=== PATIENT | female | born 1985 | race Caucasian/White ===

== ENCOUNTER 2017-07-24 09:10 | Inpatient (IN) | payer OTHER ==
[~2017-07-24] VITALS: Ht 165.1 cm; Wt 88.5 kg
[~2017-07-24 09:10] MED LIST: IBUP-974 PO
[2017-07-24] MEDS ORDERED: OXYTOCIN 20 UNITS/LR PREMIX 1,000 ML IV SCH (09:56)
[2017-07-24] MEDS ORDERED: LACTATED RINGERS 1,000 ML IV SCH (09:56)
[2017-07-24] MEDS ORDERED: OXYTOCIN 10 UNITS/ML VIAL IM SCH (10:00)
[2017-07-24] MEDS ORDERED: CARBOPROST 250 MCG/ML AMP IM PRN (10:00)
[2017-07-24] MEDS ORDERED: METHYLERGONOVINE 0.2 MG/ML AMP IM SCH (10:00)
[2017-07-24] MEDS ORDERED: IBUPROFEN 800 MG TAB PO PRN ×2 (10:00→15:10)
[2017-07-24] MEDS ORDERED: NALBUPHINE 10 MG/ML AMP IVP PRN (10:00)
[2017-07-24] MEDS ORDERED: PROMETHAZINE 25 MG/ML VIAL IVP PRN (10:00)
[2017-07-24] MEDS ORDERED: NALBUPHINE HYDROCHLORIDE 10 MG/ML VIAL ONE (10:28)
[2017-07-24 11:16] LABS: BASOPHILS # (AUTO) 0.5 K/uL (0.00-0.22); BASOPHILS % (AUTO) 3.2 % (0.0-2.0); EOSINOPHILS # (AUTO) 0.3 K/uL (0-0.4); EOSINOPHILS % (AUTO) 1.9 % (0.0-4.0); HEMATOCRIT 44.8 % (36-48); HEMOGLOBIN 14.5 g/dL (12.0-16.0); LYMPHOCYTES % (AUTO) 7.2 % (20.5-51.1); MEAN CORPUSCULAR HEMOGLOBIN 31 pg (27-31); MEAN CORPUSCULAR HGB CONC 32 g/dL (33-37); MEAN CORPUSCULAR VOLUME 96 fL (80-94); MONOCYTES # (AUTO) 0.5 K/uL (0.8-1.0); MONOCYTES % (AUTO) 3.7 % (1.7-9.3); PLATELET COUNT (AUTO) 104 K/uL (140-450); RED BLOOD CELL COUNT(AUTO) 4.67 MIL/uL (4.20-5.40); RED CELL DISTRIBUTION WIDTH 13.4 % (11.6-13.7); WHITE BLOOD COUNT (AUTO) 14.3 K/uL (4.8-10.8)
[2017-07-24 11:17] VITALS: BP 121/86
[2017-07-24 11:28] LABS: APPEARANCE,URINE CLEAR (CLEAR); BILIRUBIN,URINE NEGATIVE (NEGATIVE); BLOOD, URINE NEGATIVE (NEGATIVE); COLOR,URINE YELLOW (YELLOW); LEUKOCYTE ESTERASE ,URINE NEGATIVE (NEGATIVE); NITRITE, URINE NEGATIVE (NEGATIVE); PH,URINE 5.5 (5.0-9.0); UGLUCOSE NEGATIVE (NEGATIVE)
[2017-07-24 11:32] LABS: ALBUMIN 2.7 g/dL (3.4-5.0); ANION GAP 19.3 (8-16); CARBON DIOXIDE 18.2 mmol/L (21-32); CREATININE 0.8 mg/dL (0.6-1.3); POTASSIUM 3.5 mmol/L (3.5-5.1); TOTAL BILIRUBIN 0.4 mg/dL (0.0-1.0)
[2017-07-24] MEDS ORDERED: OXYTOCIN 20 UNITS/LR PREMIX 1,000 ML IV ONE (11:57)
[2017-07-24] MEDS ORDERED: LIDOCAINE 1% 50 ML ONE ×2 (11:57→13:52)
[2017-07-24] MEDS ORDERED: OXYTOCIN 10 UNITS/ML VIAL ONE (11:57)
[2017-07-24] MEDS ORDERED: NALOXONE 0.4 MG/ML VIAL ONE (11:59)
[2017-07-24] MEDS ORDERED: LIDOCAINE 1% 500 MG/50 ML VIAL INJ SCH ×2 (12:20→15:10)
[2017-07-24] MEDS ORDERED: SODIUM PHOSPHATE 118 ML ENEM RC PRN (15:10)
[2017-07-24] MEDS ORDERED: TEMAZEPAM 15 MG CAP PO PRN (15:10)
[2017-07-24] MEDS ORDERED: BENZOCAINE/MENTHOL 20%-0.5% 60 GM CAN TP PRN (15:10)
[2017-07-24] MEDS ORDERED: HYDROcodone/APAP 5/325 MG 1 TAB TAB PO PRN (15:10)
[2017-07-24] MEDS ORDERED: oxyCODONE/APAP 5/325 MG 1 TAB TAB PO PRN (15:10)
[2017-07-24] MEDS ORDERED: MEASLES, MUMPS, AND RUBELLA 1 VIAL SQVAC PRN (15:10)
[2017-07-24] MEDS ORDERED: PREN-380 PO (19:14)
[2017-07-24] MEDS ORDERED: DOCUSATE SOD/SENNA 50/8.6 MG 1 TAB PO SCH (21:00)
[2017-07-25 05:55] LABS: HEMATOCRIT 34.4 % (36-48); HEMOGLOBIN 11.4 g/dL (12.0-16.0)
--- NOTE | 2017-07-26 12:22 | NUR ---
CM NOTE OB DELIVERY & CLINICAL REQUESTED FAXED TO [facility] / FAX# [phone], ATTN: NANCY #[phone] [id number]
== END 2017-07-26 16:55 | disposition home or self-care (01) | DRG 560 ==
LOC: MLD 09:10 → OBSVTOIN 09:10 → MFCC 16:30
PROVIDERS: ADMIT Obstetrics & Gynecology; ATTEND Obstetrics & Gynecology
PROC: 10E0XZZ Delivery of Products of Conception, External Approach (ICD-10-PCS; principal; 2017-07-24)
PROC: 0DQP0ZZ Repair Rectum, Open Approach (ICD-10-PCS; 2017-07-24)
PROC: 3E0234Z Introduction of Serum, Toxoid and Vaccine into Muscle, Percutaneous Approach (ICD-10-PCS; 2017-07-26)
DX: O77.0 Labor and delivery complicated by meconium in amniotic fluid (principal); O70.3 Fourth degree perineal laceration during delivery; Z23 Encounter for immunization; Z37.0 Single live birth; Z3A.38 38 weeks gestation of pregnancy
CPT/HCPCS: 36415; 51702; 80053; 81003; 85018; 85025; 86592; 86886; 86900; 86901; 90715; C1758; J2001; J2300; J2310; J2590; J7120